=== PATIENT | female | born 1975 | race Caucasian/White ===

== ENCOUNTER 2018-02-07 03:26 | Emergency (ER) | payer BC ==
--- OUTSIDE RECORDS SUMMARY | 2018-02-07 03:28 | XMS REPORT ---
:1975 Author Organization eClinicalWorks Care Team Providers Name Role Phone Sophie Kaur Provider Role Unavailable Allergies, Adverse Reactions, Alerts Substance Reaction Event Type N.K.D.A. 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
--- OUTSIDE RECORDS SUMMARY | 2018-02-07 03:29 | XMS REPORT ---
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 Assessment Seasonal allergies J30.2 Active Medications Medication Code Code Instructions Start End Status Dosage System Date Date Probiotic [facility] 37554309691 - Orally Active not defined ProAir HFA [facility] 51508961551 108 (90 Base) January 14, Active 2 puffs as MCG/ACT 2018 needed Inhalation every 6 hrs Atorvastatin [facility] 65040202861 10 MG Orally Active 1 tablet Calcium Once a day Fluticasone [facility] 01737925948 50 MCG/ACT January 14, Active 1 spray in Propionate Nasally Once a 2018 each day nostril Diflucan [facility] 14950864196 150 MG Orally January 14, January 15, Active 1 tablet Once a day 2018 2018 Results No Known Results Summary Purpose eClinicalWorks Submission
[2018-02-07 04:13] LABS: Absolute Lymphocytes (CBC) 2.4 K/uL (0.7-4.9); Absolute Monocytes 0.6 K/uL (0.1-1.3); Absolute Neutrophil 6.2 K/uL (1.8-8.0); Eosinophils % 2.1 % (0-4.4); Hematocrit 41.9 % (36.0-45.0); Lymphocytes % 25.1 % (15.3-44.8); MCH 32.4 pg (27.0-35.0); MPV 9.1 fL (7.6-11.3); Monocytes % 6.3 % (3.3-12.3); RBC Red Blood Cell Count 4.32 M/uL (3.86-4.86)
[2018-02-07 04:27] LABS: Potassium 3.5 mEq/L (3.6-5.0)
[2018-02-07] MEDS ORDERED: ONDANSETRON 4 MG/2 ML VIAL ONE (04:33)
[2018-02-07] MEDS ORDERED: MORPHINE 4 MG/ML SYR ONE (04:34)
[2018-02-07] MEDS ORDERED: NA CHLORIDE 0.9% 1,000 ML ONE (04:34)
[2018-02-07 04:45] LABS: Urine Blood 1+ (NEG); Urine Glucose NEGATIVE (NEG); Urine Protein NEGATIVE (NEG); Urine Specific Gravity <1.005 (1.005-1.030); Urine pH 5.5 (5.0-7.0)
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
[2018-02-07 06:42] VITALS: BP 104/69; TEMP 97.8; O2SAT 98
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
== END 2018-02-07 06:23 | disposition home or self-care (01) ==
LOC: ER 03:26
DX: S70.02XA Contusion of left hip, initial encounter (principal); S60.519A Abrasion of unspecified hand, initial encounter; S90.819A Abrasion, unspecified foot, initial encounter; V49.9XXA Car occupant (driver) (passenger) injured in unspecified traffic accident, initial encounter; Z85.828 Personal history of other malignant neoplasm of skin; F17.210 Nicotine dependence, cigarettes, uncomplicated
CPT/HCPCS: 36415; 70450; 71260; 72125; 74177; 80048; 81003; 85025; 86850; 86900; 86901; 99285; J2405; J7030; Q9967